=== PATIENT | female | born 1960 | race Caucasian/White ===

== ENCOUNTER 2022-02-11 12:44 | Emergency (ER) | payer BC ==
[~2022-02-11] VITALS: Ht 157.5 cm; Wt 59.0 kg
[~2022-02-11 12:44] MED LIST: ASCO500 PO; C-500500 M1 PO; CALCAVITD PO; CHOLEST OFF PL450 MG PO; CRUTCH USE; Cholest Off450 MG PO; HYDACE5 PO; IBUP400; OMEGA 3-6-9 CO400 MG PO; OXYACE5T PO; RED YEAST RICE600 MG PO; RXHYDACE PO; Red Yeast Rice600 MG PO; SV FLAXSEED OI1 EACH PO; TRIHYD253A PO
[2022-02-11 13:41] LABS: BASOPHILS ABSOLUTE AUTO 0.07 K/mm3 (0.00-0.23); BASOPHILS PERCENT AUTO 1 % (0-2); EOSINOPHILS ABSOLUTE AUTO 0.17 K/mm3 (0.00-0.68); EOSINOPHILS PERCENT AUTO 2 % (0-6); Hematocrit 47.6 % (33.0-51.0); Hemoglobin 16.4 g/dL (11.5-16.0); IMMATURE GRAN ABSOLUTE AUTO 0.02 K/mm3 (0.00-0.10); IMMATURE GRAN PERCENT AUTO 0 % (0-1); LYMPHOCYTES ABSOLUTE AUTO 1.85 K/mm3 (0.84-5.20); LYMPHOCYTES PERCENT AUTO 26 % (21-46); MONOCYTES ABSOLUTE AUTO 0.54 K/mm3 (0.16-1.47); MONOCYTES PERCENT AUTO 8 % (4-13); Mean Corpuscular HGB 30.1 pg (26.0-34.0); Mean Corpuscular HGB Conc 34.5 g/dL (31.5-36.5); Mean Corpuscular Volume 87 fL (80-100); NEUTROPHILS ABSOLUTE AUTO 4.49 K/mm3 (1.96-9.15); NEUTROPHILS PERCENT AUTO 63 % (41-73); RDW Coefficient Variation 11.8 % (11.7-14.2); RDW Standard Deviation 37.4 fL (35.1-46.3); Red Blood Cell Count 5.45 M/mm3 (3.80-5.20); White Blood Cell Count 7.14 K/mm3 (4.00-11.30)
[2022-02-11 14:00] LABS: Albumin/Globulin Ratio 1.1 (0.8-1.8); Bilirubin, Total 0.5 mg/dL (0.1-1.0); Bun/Creatinine Ratio 21.9 (12.0-20.0); Creatinine, Blood 0.64 mg/dL (0.40-1.00); Globulin, Blood 3.6 g/dL (2.2-4.0); Potassium, Blood 3.3 mmol/L (3.5-5.5); Total Protein, Blood 7.6 g/dL (6.4-8.2)
[2022-02-11 14:06] LABS: Source, Urine Clean Catch
[2022-02-11 14:08] LABS: Mean Platelet Volume 8.9 fL (9.1-12.4); Platelet Count 327 K/mm3 (150-400)
[2022-02-11 14:11] LABS: Appearance, Urine Clear (Clear); Bilirubin, Urine Neg (Neg); Blood, Urine Neg (Neg); Color, Urine Yellow (P-Yellow); Glucose Qualitative, Urine Neg (Neg); Ketones, Urine Neg (Neg); Leukocyte Esterase, Urine Neg (Neg); Nitrite, Urine Neg (Neg); Protein, Urine Neg (Neg); Specific Gravity, Urine 1.005 (1.003-1.022); Urobilinogen, Urine NORM (Normal)
== END 2022-02-11 17:38 | disposition home or self-care (01) ==
LOC: ER 12:44
PROVIDERS: Physician Assistant
DX: R10.31 Right lower quadrant pain (principal); I10 Essential (primary) hypertension; Z79.899 Other long term (current) drug therapy
CPT/HCPCS: 36415; 74177; 80053; 81003; 83690; 85025; Q9967

== ENCOUNTER 2023-03-01 10:49 | Day surgery (SDC) | payer BC ==
[~2023-03-01] VITALS: Ht 157.5 cm; Wt 58.2 kg
[~2023-03-01 10:49] MED LIST changes: +Percocet 5-3251 EACH PO
--- NOTE | 2023-03-01 12:10 | NUR ---
03/01/23 1210 Cher Meadows TIME OUT COMPLETED 1149 PRIOR TO BLOCK PLACEMENT BY DR YAN.
[2023-03-01 15:33] VITALS: BP 145/80
--- NOTE | 2023-03-01 16:24 | NUR ---
03/01/23 1624 Dane Shepherd IV REMOVED INTACT. SITE WNL. PT REPORTED 2/10 PAIN UPON DISCHARGE. SHE DESCRIBED PAIN TOLERABLE AND EXPRESSED READINESS TO GO HOME. SHE DENIED NAUSEA.
== END 2023-03-01 16:28 | disposition home or self-care (01) ==
LOC: ORSCSDS 10:49
PROVIDERS: Orthopaedic Surgery
PROC: 0PSJ04Z Reposition Left Radius with Internal Fixation Device, Open Approach (ICD-10-PCS; principal; 2023-03-01 12:15)
DX: S52.572A Other intraarticular fracture of lower end of left radius, initial encounter for closed fracture (principal); I10 Essential (primary) hypertension; E78.5 Hyperlipidemia, unspecified; Z79.899 Other long term (current) drug therapy
CPT/HCPCS: A9270; C1713; J0690; J1100; J2250; J2370; J2405; J2704; J2795; J3010; J7120

== ENCOUNTER 2023-10-19 17:41 | Emergency (ER) | payer OTHER ==
[~2023-10-19] VITALS: Ht 157.5 cm; Wt 59.0 kg
[2023-10-19 17:49] VITALS: BP 142/83
== END 2023-10-19 19:23 | disposition home or self-care (01) ==
LOC: ER 17:41
DX: S52.591A Other fractures of lower end of right radius, initial encounter for closed fracture (principal); W17.89XA Other fall from one level to another, initial encounter; Y93.H2 Activity, gardening and landscaping; Z79.899 Other long term (current) drug therapy
CPT/HCPCS: 29105; 73130; 99283-25

== ENCOUNTER 2024-09-11 02:14 | Emergency (ER) | payer OTHER ==
[~2024-09-11] VITALS: Ht 157.5 cm; Wt 59.0 kg
[2024-09-11] MEDS ORDERED: Ondansetron HCl 2 MG / ML 2ML Vial IV ONE (02:30)
[2024-09-11 02:55] LABS: BASOPHILS ABSOLUTE AUTO 0.02 K/mm3 (0.00-0.23); BASOPHILS PERCENT AUTO 0 % (0-2); EOSINOPHILS ABSOLUTE AUTO 0.02 K/mm3 (0.00-0.68); EOSINOPHILS PERCENT AUTO 0 % (0-6); Hematocrit 40.9 % (33.0-51.0); Hemoglobin 13.8 g/dL (11.5-16.0); IMMATURE GRAN ABSOLUTE AUTO 0.04 K/mm3 (0.00-0.10); IMMATURE GRAN PERCENT AUTO 0 % (0-1); LYMPHOCYTES ABSOLUTE AUTO 0.32 K/mm3 (0.84-5.20); LYMPHOCYTES PERCENT AUTO 3 % (21-46); MONOCYTES ABSOLUTE AUTO 0.48 K/mm3 (0.16-1.47); MONOCYTES PERCENT AUTO 4 % (4-13); Mean Corpuscular HGB 30.5 pg (26.0-34.0); Mean Corpuscular HGB Conc 33.7 g/dL (31.5-36.5); Mean Corpuscular Volume 90 fL (80-100); Mean Platelet Volume 8.7 fL (9.1-12.4); NEUTROPHILS ABSOLUTE AUTO 11.12 K/mm3 (1.96-9.15); NEUTROPHILS PERCENT AUTO 93 % (41-73); Platelet Count 388 K/mm3 (150-400); RDW Coefficient Variation 11.8 % (11.7-14.2); Red Blood Cell Count 4.53 M/mm3 (3.80-5.20)
[2024-09-11 03:23] LABS: Albumin, Blood 3.6 g/dL (3.4-5.0); Albumin/Globulin Ratio 1.1 (0.8-1.8); Bilirubin, Total 0.4 mg/dL (0.1-1.0); Bun/Creatinine Ratio 30.2 (12.0-20.0); Calcium, Blood 9.1 mg/dL (8.5-10.1); Creatinine, Blood 1.06 mg/dL (0.40-1.00); Globulin, Blood 3.3 g/dL (2.2-4.0); Total Protein, Blood 6.9 g/dL (6.4-8.2)
[2024-09-11 03:25] LABS: Influenza A, PCR NEGATIVE (NEGATIVE); Influenza B, PCR NEGATIVE (NEGATIVE); Resp Syncytial Virus, PCR NEGATIVE (NEGATIVE); SARS-Cov-2 (COVID-19) PCR, MMC NEGATIVE (NEGATIVE)
[2024-09-11] MEDS ORDERED: NS 1,000 ML IV SCH (04:50)
[2024-09-11] MEDS ORDERED: RX Prepack 6 Tabs Oxycodone 5mg UD ONE (06:15)
[2024-09-11] MEDS ORDERED: Acetaminophen 325 MG TABLET PO ONE (06:15)
[2024-09-11] MEDS ORDERED: Ketorolac Tromethamine 30mg Vial IV ONE (06:15)
[2024-09-11] MEDS ORDERED: ONDA4ODT MM (06:59)
[2024-09-11] MEDS ORDERED: RX Prepack 2 Tabs Ondansetron ODT 4MG UD ONE (07:00)
[2024-09-11 07:25] VITALS: BP 99/65
== END 2024-09-11 07:36 | disposition home or self-care (01) ==
LOC: ER 02:14
PROVIDERS: Student in an Organized Health Care Education/Training Program
DX: S22.32XA Fracture of one rib, left side, initial encounter for closed fracture (principal); S93.402A Sprain of unspecified ligament of left ankle, initial encounter; I95.1 Orthostatic hypotension; R11.2 Nausea with vomiting, unspecified; I10 Essential (primary) hypertension; W18.30XA Fall on same level, unspecified, initial encounter; Z79.899 Other long term (current) drug therapy
CPT/HCPCS: 0241U; 71046; 73610; 80053; 84484; 85025; 93005; 93010; 99284-25; A9270; J7030

== ENCOUNTER 2024-09-12 13:33 | Emergency (ER) | payer OTHER ==
[~2024-09-12] VITALS: Ht 157.5 cm; Wt 59.0 kg
[~2024-09-12 13:33] MED LIST changes: +ONDA4ODT MM
[2024-09-12 14:46] VITALS: BP 121/73
== END 2024-09-12 15:20 | disposition home or self-care (01) ==
LOC: ER 13:33
DX: S82.435A Nondisplaced oblique fracture of shaft of left fibula, initial encounter for closed fracture (principal); I10 Essential (primary) hypertension; Z79.899 Other long term (current) drug therapy; W18.30XA Fall on same level, unspecified, initial encounter
CPT/HCPCS: 29515; 99282-25